=== PATIENT | female | born 1985 | race Caucasian/White ===

== ENCOUNTER 2016-12-12 23:50 | Emergency (ER) | payer OTHER | END 2016-12-13 01:34 | disposition home or self-care (01) | LOC: ER 23:50 | DX: R07.9 Chest pain, unspecified (principal); E87.6 Hypokalemia; E83.51 Hypocalcemia; F41.9 Anxiety disorder, unspecified; M62.838 Other muscle spasm; F31.9 Bipolar disorder, unspecified; I10 Essential (primary) hypertension; F17.210 Nicotine dependence, cigarettes, uncomplicated; Z87.442 Personal history of urinary calculi; Z79.899 Other long term (current) drug therapy; Z88.1 Allergy status to other antibiotic agents | CPT/HCPCS: 36415; 96374; J2060 ==

== ENCOUNTER 2017-01-31 11:15 | Emergency (ER) | payer OTHER | END 2017-01-31 16:12 | disposition home or self-care (01) | LOC: ER 11:15 | DX: N13.2 Hydronephrosis with renal and ureteral calculous obstruction (principal); N39.0 Urinary tract infection, site not specified; E87.6 Hypokalemia; I10 Essential (primary) hypertension; F17.210 Nicotine dependence, cigarettes, uncomplicated; Z90.49 Acquired absence of other specified parts of digestive tract; Z88.1 Allergy status to other antibiotic agents | CPT/HCPCS: 36415; 96361; 96365; 96367; 96375; J0696; J1885 ==